=== PATIENT | male | born 1950 | race Caucasian/White ===

== ENCOUNTER 2017-07-14 11:42 | Emergency (ER) | payer MEDICARE, OTHER ==
[~2017-07-14] VITALS: Ht 180.3 cm; Wt 97.1 kg
[2017-07-14 11:52] VITALS: BP 164/96
[2017-07-14] MEDS ORDERED: ACETAMINOPHEN 325 MG TAB PO ONE (12:45)
[2017-07-14] MEDS ORDERED: TETANUS-DIPTH-ACEL PERTUSSIS 0.5ML SYRG IM ONE (12:45)
[2017-07-14] MEDS ORDERED: NEOMYCIN-BACITRACIN-POLYM UNITDOSE PKG TOP OINT TOP ONE (12:45)
== END 2017-07-14 12:54 | disposition home or self-care (01) ==
LOC: ER 11:42
DX: S01.01XA Laceration without foreign body of scalp, initial encounter (principal); F17.210 Nicotine dependence, cigarettes, uncomplicated; W22.8XXA Striking against or struck by other objects, initial encounter; Y93.89 Activity, other specified; Y92.096 Garden or yard of other non-institutional residence as the place of occurrence of the external cause; Y99.8 Other external cause status
CPT/HCPCS: 12001; 90471; 90715

== ENCOUNTER 2017-07-23 05:17 | Emergency (ER) | payer OTHER ==
[~2017-07-23] VITALS: Ht 180.3 cm; Wt 97.1 kg
[2017-07-23 05:48] VITALS: BP 169/91
== END 2017-07-23 05:57 | disposition home or self-care (01) ==
LOC: ER 05:18
DX: S01.91XD Laceration without foreign body of unspecified part of head, subsequent encounter (principal); F17.210 Nicotine dependence, cigarettes, uncomplicated; X58.XXXD Exposure to other specified factors, subsequent encounter